=== PATIENT | female | born 1950 | race Caucasian/White ===

== ENCOUNTER 2017-03-29 16:24 | Inpatient (IN) | payer MEDICARE ==
[~2017-03-29] VITALS: Ht 160 cm; Wt 59.0 kg
[~2017-03-29 16:24] MED LIST: ADVAIR DISK1 INH; ALBUTEROL SUL0.083 % IN; FOSAMAX PLUS PO; LEXAPRO10 MG PO; LIPITOR10 M1 PO; LISINOPRIL10 MG PO; LISINOPRIL20 MG PO; MIRALAX3350 NF PO; MULTI VIT PO; PRILOSEC40 MG PO; PROAIR HFA IN; SYMBICORT 80-4.5MCG IN; VENTOLIN HFA IN; ZITHROMAX500 MG PO
[2017-03-29] MEDS ORDERED: LEVOTHYROXIN50 MCG PO (16:44)
--- NOTE | 2017-03-29 16:44 | NUR ---
PT BROUGHT BACK TO ROOM FOR EXAM
--- NOTE | 2017-03-29 17:10 | NUR ---
PT PLACED ON 3 L O2, NC.
--- NOTE | 2017-03-29 17:15 | NUR ---
INTRODUCED SELF TO PT AND DAUGHTER. PT REPORTS 10 DAY HX OF FLU LIKE SYMPTOMS. PT WAS UNABLE TO HAVE SCRIPT FOR TAMIFLU FILLED DUE TO COST. SAO2 85% ON ROOM AIR. RT AT BEDSIDE AND DUONEB GIVEN. LS HAVE BILATERAL WHEEZES AND RHONCHI TO THE LEFT LOWER LOBE. IV INITIATED AND LABS COLLECTED. PT AWARE OF PROBABLE PLAN OF CARE AND WAIT TIME. CALL GEORGE WITHIN REACH, WILL CONTINUE TO MONITOR.
[2017-03-29 17:55] LABS: HEMATOCRIT 38.3 % (37.0-47.0); HEMOGLOBIN 12.9 g/dl (12.0-16.0); IMMATURE GRANULOCYTES 0.4 % (0.0-1.0); MEAN CELL VOLUME 89.5 fL CALC (80.0-100.0); MEAN CORPUSCULAR HGB 30.1 pG CALC (26.0-32.0); MEAN CORPUSCULAR HGB CONC 33.7 g/L CALC (32.0-36.0); NEUT# 7.36 thou/uL (2.00-7.15); RED BLOOD COUNT 4.28 mill/uL (4.20-5.60); RED CELL DISTRI WIDTH 12.4 % (11.5-15.5)
--- NOTE | 2017-03-29 18:00 | NUR ---
PT RESTING COMFORTABLY IN STRETCHER, SAO2 99% ON 3L, NC. PATIENT AWARE OF PENDIGN ADMISSION AND WAIT TIME. PT DENIES ANY NEEDS AT THIS TIME. WILL CONTINUE TO MONITOR. TEMP RECHECK 100.4.
[2017-03-29 18:03] LABS: INFLUENZA A NONE DETECTED (NONE DETECT); INFLUENZA B NONE DETECTED (NONE DETECT)
[2017-03-29 18:05] LABS: ANION GAP 17 (6-22 (CALC)); BUN 11 mg/dL (8-23); BUN/CREATININE RATIO 14 (12-20 (CALC)); CARBON DIOXIDE 26 mmol/l (22-30); CHLORIDE 98 mmol/l (95-108); CREATININE 0.8 mg/dL (0.5-1.0); GFR > 60 ML/MIN (>=60 (CALC)); GFR FOR AFR.AMER. > 60 ML/MIN (>=60 (CALC)); POTASSIUM 4.3 mmol/l (3.5-5.1); SODIUM 136 mmol/l (137-146)
--- NOTE | 2017-03-29 18:30 | NUR ---
PT AMBULATED TO THE BATHROOM WITH A STEADY GAIT.
--- NOTE | 2017-03-29 18:57 | NUR ---
REPORT GIVEN TO LAISHA MCGILL.
--- NOTE | 2017-03-29 19:11 | NUR ---
REPORT CALLED TO GWEN CHAMORRO.
--- NOTE | 2017-03-29 19:11 | NUR ---
REPORT CALLED TO GWEN WHEELER.
--- NOTE | 2017-03-29 19:13 | NUR ---
Pt advised on admission. Report called to admitting RN. Advised that she needs atleast 15 minutes before sending pt up. Pt and family member agree with admission plan.
--- NOTE | 2017-03-29 19:40 | NUR ---
PT TRANSFERRED TO FLOOR IN STABLE CONDITION VIA STRETCHER ACCOMPANIED LAISHA FERGUSON AND FAMILY;PT AMBULATED WITH WEAK GAIT TO BEDSIDE;WT AND VS OBTAINED AT THIS TIME;CURRENT TEMP 99.4,BLANKETS REMOVED AND AC LOWERED;A&O X3;PT ORIENTED TO ROOM AND CALL LIGHT SYSTEM AND VERBALIZES UNDERSTANDING;PT REPORTS HAVING "FLU LIKE" SYMPTOMS FOR X10 DAYS;WENT TO [facility]ER[facility] 03/28/17 AND WAS DIAGNOSED WITH THE FLU;NO N/V REPORTED;ASSESSMENT COMPLETED;RESPIRATIONS SHALLOW,EXERTIONAL SOB;PURSED LIP BREATHING TECHNIQUE EDUCATED;PT IS ON 3L OF OXYGEN VIA NC,NOT HOME DEPENDENT;WHEEZES NOTED;ABDOMEN SOFT UPON PALPATION;PERRLA;STRONG PEDAL PULSES;SKIN INTACT;PT VOICES NO COMPLAINTS OF PAIN;PAIN SCALE AND REPORTING EDUCATED;#20G TO LAC FLUSHED AND PATENT;LAST BM 03/28;PT AND FAMILY DENIES ANY OTHER NEEDS;SAFETY PRECAUTIONS REINFORCED WITH BED IN THE LOWEST POSITION AND CALL LIGHT IN REACH;WILL CONTINUE TO MONITOR
[2017-03-29 19:50] VITALS: BP 140/87
--- NOTE | 2017-03-29 20:12 | NUR ---
PT COMPLAINS OF NAUSEA;EMESIS BAG PROVIDED AND MD NOTIFIED;NEW ORDERS RECEIVED
--- NOTE | 2017-03-29 20:50 | NUR ---
PT MEDICATED WITH ZOFRAN 4MG IVP FOR NAUSEA;PT ALSO AMBULATED TO RESTOOM AND VOIDED 500CC OF CLEAR/YELLOW URINE;REPOSITIONED BACK INTO BED;PT DENIES ANY OTHER NEEDS;WILL CONTINUE TO MONITOR
--- NOTE | 2017-03-30 | NUR ---
PT APPEARS TO BE SLEEPING IN SUPINE POSITION;NO S/S OF DISTRESS NOTED;RESPIRATIONS EVEN AND UNLABORED ON 02 @ 3L VIA NC;CALL LIGHT IN REACH;WILL CONTINUE TO MONITOR
--- NOTE | 2017-03-30 00:45 | NUR ---
PT COMPLAINS OF MID BACK PAIN RATING 5/10 ON THE PAIN SCALE AND REQUESTS PAIN MEDICATION;PT REPOSITIONED AND MEDICATED WITH TYLENOL 650MG PO;WILL CONTINUE TO MONITOR FOR EFFECTIVENESS
[2017-03-30 04:44] VITALS: BP 123/76
--- NOTE | 2017-03-30 04:45 | NUR ---
PT SLEEPING IN SUPINE POSITION UPON ENTERING THE ROOM;WOKE PT TO OBTAIN VS;RESPIRATIONS EVEN AND UNLABORED ON 02 @ 3L VIA NC;PT DENIES ANY PAIN THIS MORNING;CURRENT TEMP 97.9;PT ENCOURAGED TO CALL FOR ASSISTANCE IF NEEDED;CALL LIGHT IN REACH;WILL CONTINUE TO MONITOR
--- NOTE | 2017-03-30 07:16 | NUR ---
SHIFT CHANGE REPORT FROM GLORIA ABRAMS SLEEPING AT THIS TIME, BREATHING EVEN AND NON-LABORED, NOSIGN DISCOMFORT, CALL GEORGE IN REACH.
[2017-03-30 07:55] VITALS: BP 125/79
[2017-03-30 10:21] LABS: HEMATOCRIT 38.1 % (37.0-47.0); HEMOGLOBIN 12.7 g/dl (12.0-16.0); IMMATURE GRANULOCYTES 0.9 % (0.0-1.0); MEAN CELL VOLUME 89.4 fL CALC (80.0-100.0); MEAN CORPUSCULAR HGB 29.8 pG CALC (26.0-32.0); MEAN CORPUSCULAR HGB CONC 33.3 g/L CALC (32.0-36.0); NEUT# 8.09 thou/uL (2.00-7.15); RED BLOOD COUNT 4.26 mill/uL (4.20-5.60); RED CELL DISTRI WIDTH 12.3 % (11.5-15.5)
--- NOTE | 2017-03-30 10:51 | NUR ---
DR PEREZ AND LENNY ROUNDED, PT RECEIVED BREATHING TREATMENT AND HAD PRODUCTIVE COUGH, SITTING UP IN RECLINER AT THIS TIME, INQUIRED ABOUT HOME MEDS AND MD STAFF NOTIFIED AND STATED WILL ADDRESS.
[2017-03-30] MEDS ORDERED: BUSPAR5 M1 PO (11:04)
[2017-03-30 11:23] LABS: CHOLESTEROL HDL RATIO 3.2 (<4.4 (CALC))
[2017-03-30 11:24] LABS: ANION GAP 19 (6-22 (CALC)); BUN 13 mg/dL (8-23); BUN/CREATININE RATIO 16 (12-20 (CALC)); CARBON DIOXIDE 23 mmol/l (22-30); CHLORIDE 103 mmol/l (95-108); CREATININE 0.8 mg/dL (0.5-1.0); GFR > 60 ML/MIN (>=60 (CALC)); GFR FOR AFR.AMER. > 60 ML/MIN (>=60 (CALC)); POTASSIUM 4.1 mmol/l (3.5-5.1); SODIUM 141 mmol/l (137-146)
[2017-03-30 11:41] VITALS: BP 115/76
[2017-03-30 15:30] VITALS: BP 104/65
--- NOTE | 2017-03-30 16:02 | NUR ---
RESTING IN BED, REPORTED EXPERIENCING SE OF STEROIDS INFORMED EARLIER WOULD POSSIBLY HAPPEN (HOT FLASHES), ALL NEEDS MET/ADDRESSED, CALL GEORGE IN REACH.
--- NOTE | 2017-03-30 16:22 | NUR ---
Patient is feeling better. Solu-Medrol gives her a hot flash right after the dose but it goes away; Patient denied any hives and/or rash. Patient denied any other side effects. c
[2017-03-30 18:00] VITALS: BP 130/76
--- NOTE | 2017-03-30 19:30 | NUR ---
PT RESTING IN BED WATCHING TV; ALERT AND ORIENTED. C/O MILD NECK AND BACK PAIN; REQUESTS TO HAVE SOME PAIN MEDICATION AT HS. RESPIRATIONS EVEN AND UNLABORED ON OXYGEN. LUNGS CLEAR WITH EXPIRATORY WHEEZING IN BASES; BREATHING TREATMENT SCHEDULED AT THIS TIME. PLAN OF CARE DISCUSSED. PT ENCOURAGED TO VERBALIZE CONCERNS. STATES UNDERSTANDING. SAFETY MEASURES IN PLACE. CALL LIGHT WITHIN REACH.
--- NOTE | 2017-03-30 20:52 | NUR ---
OBINNA, DAUGHTER ARRIVED FROM [place] AND IS AT BEDSIDE AT THIS TIME. PT UP TO BATHROOM TO VOID AND SHORT OF BREATH AFTER EXERTION. EDUCATED ON BREATHING TECHNIQUES WITH OXYGEN IN PLACE. TELE IN PLACE.
[2017-03-31] VITALS: BP 119/70
--- NOTE | 2017-03-31 00:30 | NUR ---
PT ASLEEP AT THIS TIME WITH NO SIGNS OF DISTRESS NOTED. AWAKENS SPONTANEOUSLY. STATES THAT THE LORTAB WAS EFFECTIVE AND SHE HAS NO PAIN CURRENTLY. RESPIRATIONS EVEN AND UNLBAORED ON OXYGEN. VS STABLE. PT HAS NO REQUESTS AT THIS TIME. UP INDEPENDENTLY TO BATHROOM. UNDERSTANDS TO CALL FOR ASSISTANCE NEEDED. IV SITE APPEARS HEALTHY AND FLUSHES. SAFETY MEASURES IN PLACE. CALL LIGHT WITHIN REACH.
[2017-03-31 04:00] VITALS: BP 109/73
--- NOTE | 2017-03-31 04:40 | NUR ---
PT ASLEEP AT THIS TIME. VS STABLE. DENIES PAIN AT THIS TIME. RESPIRATIONS EVEN AND UNLABORED ON OXYGEN. NO ACUTE CHANGES IN CONDITION THROUGHOUT THE NIGHT. PT USES CALL LIGHT PRN FOR ASSISTANCE. SAFETY MEASURES IN PLACE. CALL LIGHT WITHIN REACH.
[2017-03-31 05:27] LABS: ANION GAP 15 (6-22 (CALC)); BUN 13 mg/dL (8-23); BUN/CREATININE RATIO 17 (12-20 (CALC)); CARBON DIOXIDE 27 mmol/l (22-30); CHLORIDE 105 mmol/l (95-108); CREATININE 0.8 mg/dL (0.5-1.0); GFR > 60 ML/MIN (>=60 (CALC)); GFR FOR AFR.AMER. > 60 ML/MIN (>=60 (CALC)); MAGNESIUM 2.1 mg/dL (1.6-2.3); POTASSIUM 4.4 mmol/l (3.5-5.1); SODIUM 142 mmol/l (137-146)
[2017-03-31 05:31] LABS: HEMATOCRIT 35.9 % (37.0-47.0); IMMATURE GRANULOCYTES 2.2 % (0.0-1.0); MEAN CELL VOLUME 89.3 fL CALC (80.0-100.0); MEAN CORPUSCULAR HGB 29.9 pG CALC (26.0-32.0); MEAN CORPUSCULAR HGB CONC 33.4 g/L CALC (32.0-36.0); NEUT# 12.04 thou/uL (2.00-7.15); RED BLOOD COUNT 4.02 mill/uL (4.20-5.60); RED CELL DISTRI WIDTH 12.4 % (11.5-15.5)
--- NOTE | 2017-03-31 07:45 | NUR ---
PT.REPORTS MILD NAUSEA, BUT DENIES MEDICATION AND REPORTS WANTING TO TRY AND EAT BREAKFAST AND SEE IF THAT HELPS THE NAUSEA. WILL FOLLOW-UP AFTER BREAKFAST AND REASSESS.
[2017-03-31 08:00] VITALS: BP 118/71
--- NOTE | 2017-03-31 08:57 | NUR ---
PT.UPRIGHT IN BED WITH LIGHTS AND TV OFF. SHE REPORTS BEING NAUSEOUS, AT FIRST REFUSED ZOFRAN, BUT I WAS PREPARING TO LEAVE THE ROOM SHE ASKED IF SHE COULD POSSIBLY HAVE IT. WILL PROVIDE. PT.ASSESSED, REPORTS LAST BM 4 OR 5 DAYS AGO. DENIES ABD.PAIN OR TENDERNESS AT THIS TIME. LUNG SOUNDS WHEEZING ANTERIOR EXPIRATORY/CLEAR POSTERIOR. IV SITE IS SLIGHTLY EDEMATOUS REPORTED FROM NIGHT NURSE, BUT FLUSHES WELL AND PT.DENIES ANY PAIN AND REPORTS "TASTING SALINE." CALL LIGHT LEFT AT SIDE AND PT.REORIENTED TO CALLING AND REPORTING SYMPTOMS.
--- NOTE | 2017-03-31 09:17 | NUR ---
PT COMPLAINS OF NAUSEA WITHOUT VOMITING. MEDICATED WITH IV ZOFRAN BY ILEANA GOLDSTEIN RN. WILL HOLD PO MEDS AND RE-EVALUATE NAUSEA. STAFF NURSE AWARE.
--- NOTE | 2017-03-31 09:47 | NUR ---
PT.ABD SOFT NONTENDER AND REPORTS THAT NAUSEA IS STARTING TO IMPROVE. SHE THINKS [employer] IS STARTING TO WORK. POC DISCUSSED WITH PT.
--- NOTE | 2017-03-31 10:00 | NUR ---
PT ASSESSMENT COMPLETED. PT IS A&O X 3. PT IS REPORTING NO PAIN AT THIS TIME. HEART SOUNDS REGULAR AND STRONG. LUNGS SOUNDS CLEAR IN BOTH UPPER LOBES, SLIGHT EXPIRATORY WHEEZING NOTED IN LOWER LOBES BILATERALLY. PT BREATHING IS EVEN AND UNLABORED WITH NO DISTRESS. O2 SATS ARE 95% ON 2L NC. PT IS RECEIVING BREATHING TREATMENTS WELL. NON-PRODUCTIVE COUGH WITH NO SPUTUM NOTED. RADIAL AND PEDAL PULSES PRESENT. NEURO REFLEXES INTACT. SKIN IS WARM/DRY WITH NORMAL TURGOR AND GOOD CAPILLARY REFILL IN EXTREMITIES. IV SITE HAS NO EDEMA OR ERYTHEMA. ABDOMEN SOFT, NON-TENDER AND NON-DISTENDED WITH HYPOACTIVE BOWEL SOUNDS IN ALL QUADRANTS. PT STATES SHE HAS A HISTORY OF CELIAC DISEASE. SHE ALSO STATES THAT SHE HAS NOT HAD A BM IN 4 DAYS. STAFF NURSE NOTIFIED OF COMPLAINT. FLUIDS ENCOURAGED.
[2017-03-31 11:45] VITALS: BP 120/73
[2017-03-31 15:55] VITALS: BP 117/70
--- NOTE | 2017-03-31 16:14 | NUR ---
Talked to patient about her medications. Patient said that she felt better and less mucous while she coughs up. Discussed side effects of lortab and tramadol with her. Patient said no side effect with the two pain medications. Patient said to be on two medications for anxiety include buspirone and escitalopram for a long time, and she does not have any concerns with these two medications. Patient said that solu-medrol is helping her breathing problems. Patient reported no side effects with other medications she is currently on. No other questions to the pharmacy at this time.
--- NOTE | 2017-03-31 19:30 | NUR ---
PT SITTING UP IN BED WATCHING TV. FAMILY IN ROOM. PT IS ALERT AND ORIENTED X3. PERRLA. RESP ARE EVEN AND UNLABORED. O2 2L NC IN PLACE. WHEEZING NOTED THROUGHOUT LUNGS. HR REGULAR. PULSES PALPABLE THROUGHOUT. NO EDEMA NOTED. BS ACTIVE. #20 RAC SALINE LOCKED. NO REDNESS OR EDEMA NOTED. WILL CONTINUE TO MONITOR
[2017-03-31 20:11] VITALS: BP 131/76
--- NOTE | 2017-04-01 | NUR ---
PT RESTING IN BED WITH EYES CLOSED. RESP ARE EVEN AND UNLABORED. PT AROUSES EASILY TO VERBAL STIMULI. NO DISTRESS NOTED. PT VOICES NO COMPLAINTS AT THIS TIME. WILL CONTINUE TO MONITOR
[2017-04-01 00:45] VITALS: BP 116/67
--- NOTE | 2017-04-01 04:14 | NUR ---
PT RESTING IN BED WITH EYES CLOSED. AROUSES EASILY TO VERBAL STIMULI. RESP ARE EVEN AND UNLABORED. NO DISTRESS NOTED. WILL CONTINUE TO SERENA
[2017-04-01 04:15] VITALS: BP 145/89
--- NOTE | 2017-04-01 05:30 | NUR ---
PT WITH COMPLAINTS OF CHEST PAIN THAT RADIATES TO THE JAW. NO CHANGES ON TELEMETRY. HR-95 BP-151/80 RESP-20 O2 SAT 95%. DR PEREZ NOTIFIED.
--- NOTE | 2017-04-01 05:45 | NUR ---
RT INTO ROOM TO COMPLETE EKG
--- NOTE | 2017-04-01 06:00 | NUR ---
LAB INTO ROOM TO DRAW TROPONIN
--- NOTE | 2017-04-01 06:15 | NUR ---
PT STATES THAT PAIN HAS RESOLVED TOTALLY. STATING "I THINK IT WAS JUST BAD INDIGESTION'.
[2017-04-01 09:04] VITALS: BP 132/74
[2017-04-01] MEDS ORDERED: LEVAQUIN750 MG PO (14:24)
[2017-04-01] MEDS ORDERED: PREDNISONE10 MG PO (14:24)
--- NOTE | 2017-04-01 16:49 | NUR ---
PT.DISCHARGED OFF UNIT FLOOR ACCOMPANIED BY DAUGHTER VIA WHEELCHAIR IN GOOD CONDITION. IV HAS BEEN REMOVED SITE APPEARED HEALTHY. BACK OFFICE MEDICAL ASSISTANT REMOVED.
== END 2017-04-01 16:36 | disposition home or self-care (01) | DRG 190 ==
LOC: ED 16:24 → ED-I 18:30 → ED 18:45 → MS2 18:46
PROVIDERS: Family Medicine; Nurse Practitioner Family; ADMIT Internal Medicine; ATTEND Internal Medicine
DX: J44.1 Chronic obstructive pulmonary disease with (acute) exacerbation (principal); J96.01 Acute respiratory failure with hypoxia; E03.9 Hypothyroidism, unspecified; J44.0 Chronic obstructive pulmonary disease with (acute) lower respiratory infection; J20.9 Acute bronchitis, unspecified; I10 Essential (primary) hypertension; E78.5 Hyperlipidemia, unspecified; M19.90 Unspecified osteoarthritis, unspecified site; G25.0 Essential tremor; K90.0 Celiac disease; F41.8 Other specified anxiety disorders; G89.29 Other chronic pain; M54.5 Low back pain; Z87.891 Personal history of nicotine dependence; Z91.14 Patient's other noncompliance with medication regimen
CPT/HCPCS: G0378

== ENCOUNTER 2022-04-25 10:28 | Day surgery (SDC) | payer MEDICARE ==
[~2022-04-25 10:28] MED LIST changes: +B121000 MC1 IJ; +BUSPAR5 M1 PO; +GABAPENTIN100 MG PO; +LEVAQUIN750 MG PO; +LEVOTHYROXIN50 MCG PO; +OMEPRAZOLE20 MG PO; +PREDNISONE10 MG PO
[2022-04-25 13:44] VITALS: BP 143/79
== END 2022-04-25 14:05 | disposition home or self-care (01) ==
LOC: ENDO 10:28 → ORM 11:15 → ENDO 14:05 → ORM 14:05
PROVIDERS: ATTEND Internal Medicine Gastroenterology
PROC: 0DB98ZX Excision of Duodenum, Via Natural or Artificial Opening Endoscopic, Diagnostic (ICD-10-PCS; principal; 2022-04-25)
PROC: 0DB78ZX Excision of Stomach, Pylorus, Via Natural or Artificial Opening Endoscopic, Diagnostic (ICD-10-PCS; 2022-04-25)
PROC: 0DB38ZX Excision of Lower Esophagus, Via Natural or Artificial Opening Endoscopic, Diagnostic (ICD-10-PCS; 2022-04-25)
PROC: 0DBK8ZX Excision of Ascending Colon, Via Natural or Artificial Opening Endoscopic, Diagnostic (ICD-10-PCS; 2022-04-25)
PROC: 0DBP8ZX Excision of Rectum, Via Natural or Artificial Opening Endoscopic, Diagnostic (ICD-10-PCS; 2022-04-25)
PROC: 0D738ZZ Dilation of Lower Esophagus, Via Natural or Artificial Opening Endoscopic (ICD-10-PCS; 2022-04-25)
DX: K22.2 Esophageal obstruction (principal); K29.70 Gastritis, unspecified, without bleeding; K22.70 Barrett's esophagus without dysplasia; K90.0 Celiac disease; Z12.11 Encounter for screening for malignant neoplasm of colon; D12.2 Benign neoplasm of ascending colon; K62.1 Rectal polyp; K57.30 Diverticulosis of large intestine without perforation or abscess without bleeding; Q43.8 Other specified congenital malformations of intestine; K64.8 Other hemorrhoids; I10 Essential (primary) hypertension; Z98.890 Other specified postprocedural states; Z86.010 Personal history of colon polyps